=== PATIENT | male | born 1960 | race Caucasian/White ===

== ENCOUNTER 2016-11-07 13:49 | Emergency (ER) | payer MEDICARE ==
[2016-11-07 14:14] VITALS: BP 134/99; PULSE 79; RESP 16; TEMP 98.1; O2SAT 98
--- NOTE | 2016-11-07 15:13 | C.PDOC ---
History Of Present Illness 56 yr old male presents to the ER with complaints of bilateral eye itch, with runny nose, cough and injected conjunctiva for the past few days. Patient denies fever, chills, vision changes, discharge from eye, chest pain, SOB, weakness or numbness. Time Seen by Provider: 11/07/16 14:33 Chief Complaint (Nursing): Eye Problem History Per: Patient History/Exam Limitations: no limitations Onset/Duration Of Symptoms: Days Current Symptoms Are (Timing): Still Present Past Medical History Reviewed: Historical Data, Nursing Documentation, Vital Signs Vital Signs: Last Vital Signs Temp 98.1 F 11/07/16 14:10 Pulse 79 11/07/16 14:10 Resp 16 11/07/16 14:10 BP 134/99 H 11/07/16 14:10 Pulse Ox 98 11/07/16 15:13 Surgical History: Tonsillectomy Family History: States: No Known Family Hx - Social History Hx Alcohol Use: No Hx Substance Use: No - Immunization History Hx Tetanus Toxoid Vaccination: No Hx Influenza Vaccination: No Hx Pneumococcal Vaccination: No Review Of Systems Except As Marked, All Systems Reviewed And Found Negative. Constitutional: Negative for: Fever, Chills Eyes: Positive for: Conjunctivae Inflammation. Negative for: Vision Change ENT: Positive for: Nose Discharge Cardiovascular: Negative for: Chest Pain Respiratory: Positive for: Cough. Negative for: Shortness of Breath Neurological: Negative for: Weakness, Numbness Physical Exam - Physical Exam Appears: Well, Non-toxic, No Acute Distress Skin: Warm, Dry, No Rash Head: Atraumatic, Normacephalic Eye(s): bilateral: PERRL, EOMI, Other (Bilateral conjuctival injection. No discharge. ) Ear(s): Bilateral: Normal Oral Mucosa: Moist Throat: Normal, No Erythema, No Exudate Chest: Symmetrical, No Tenderness Cardiovascular: Rhythm Regular, No Murmur Respiratory: Normal Breath Sounds, No Rales, No Rhonchi, No Stridor, No Wheezing Extremity: Normal ROM, No Swelling Neurological/Psych: Oriented x3, Normal Speech ED Course And Treatment O2 Sat by Pulse Oximetry: 98 Medical Decision Making Medical Decision Making: PLAN: * Claritin PO Disposition Counseled Patient/Family Regarding: Diagnosis, Need For Followup, Rx Given - Disposition Referrals: [facility] at [facility] [Outside] Disposition: HOME/ ROUTINE Disposition Time: 15:11 Condition: STABLE Prescriptions: Loratadine/Pseudoephedrine [Claritin-D 24 Hour Tablet] 1 each PO DAILY #10 tab.er.24h Instructions: Allergies (ED) Forms: General Discharge Instructions, Work Excuse - POA Present On Arrival: None - Clinical Impression Clinical Impression: Allergic conjunctivitis - Scribe Statement The provider has reviewed the documentation as recorded by the Desiree Gomez Provider Attestation: All medical record entries made by the Desiree were at my direction and personally dictated by me. I have reviewed the chart and agree that the record accurately reflects my personal performance of the history, physical exam, medical decision making, and the department course for this patient. I have also personally directed, reviewed, and agree with the discharge instructions and disposition.
== END 2016-11-07 15:29 | disposition home or self-care (01) ==
LOC: C.ER 13:49
DX: H10.13 Acute atopic conjunctivitis, bilateral (principal)

== ENCOUNTER 2017-04-28 09:09 | Emergency (ER) | payer MEDICARE ==
[2017-04-28 09:52] VITALS: RESP 18; O2SAT 100
[2017-04-28 11:19] VITALS: BP 132/70; PULSE 84; TEMP 98.4
--- NOTE | 2017-04-28 12:59 | C.PDOC ---
History Of Present Illness The patient is a 56yo male, presents to the ED for evaluation of itching all over his body, which he attributes to bug bites. Patient states he woke up this morning and noticed bed bugs in his bed. He denies any shortness of breath, throat swelling. Patient offers no other medical complaints. Time Seen by Provider: 04/28/17 09:50 Chief Complaint (Nursing): Abnormal Skin Integrity History Per: Patient History/Exam Limitations: no limitations Onset/Duration Of Symptoms: Hrs Current Symptoms Are (Timing): Still Present Quality Of Symptoms: Itching Past Medical History Reviewed: Historical Data, Nursing Documentation, Vital Signs Vital Signs: Last Vital Signs Temp 98.4 F 04/28/17 11:17 Pulse 84 04/28/17 11:17 Resp 18 04/28/17 11:17 BP 132/70 04/28/17 11:17 Pulse Ox 100 04/28/17 13:04 - Medical History PMH: Anxiety Surgical History: Tonsillectomy Family History: States: Unknown Family Hx - Social History Hx Alcohol Use: No Hx Substance Use: No - Immunization History Hx Tetanus Toxoid Vaccination: No Hx Influenza Vaccination: No Hx Pneumococcal Vaccination: No Review Of Systems Respiratory: Negative for: Shortness of Breath Skin: Positive for: Rash (bilateral arms, abdomen) Physical Exam - Physical Exam Appears: Non-toxic, No Acute Distress Skin: Rash (diffuse papular rash noted to bilateral arms and on abdomen) Eye(s): bilateral: Normal Inspection Neck: Normal Cardiovascular: Rhythm Regular Respiratory: Normal Breath Sounds, No Wheezing Gastrointestinal/Abdominal: Soft, No Tenderness ED Course And Treatment O2 Sat by Pulse Oximetry: 100 (RA) Pulse Ox Interpretation: Normal Medical Decision Making Medical Decision Making: Impression: Insect Bite Plan: -- Patient informed to get rid of his mattress and bed sheets at home. Patient to be discharged home with prescription for Benadryl anti-itch cream. Disposition - Disposition Referrals: [facility] [Outside] [facility] [Outside] Disposition: HOME/ ROUTINE Disposition Time: 11:00 Condition: GOOD Additional Instructions: Thank you for letting us take care of you today. Your provider was Dr. Patricia. You were treated for bed bugs. The emergency medical care you received today was directed at your acute symptoms. If you were prescribed any medication, please fill it and take as directed. It may take several days for your symptoms to resolve. Return to the Emergency Department if your symptoms worsen, do not improve, or if you have any other problems. Please contact your doctor or call one of the physicians/clinics you have been referred to that are listed on the Patient Visit Information form that is included in your discharge packet. Bring any paperwork you were given at discharge with you along with any medications you are taking to your follow up visit. Our treatment cannot replace ongoing medical care by a primary care provider (PCP) outside of the emergency department. Thank you for allowing the [email or web address] team to be part of your care today. THROW OUT YOUR SHEETS AND MATTRESS. CONSIDER TREATING ROOM. Take the cream as needed for itch. Prescriptions: Diphenhydramine HCl/Zinc Acet [Benadryl Itch Stopping Crm] 28.3 gm TP BID #1 cream..g. Instructions: Bed Bugs (ED) Forms: [employer] (Honduran) - Clinical Impression Clinical Impression: Bed bug bite - Scribe Statement The provider has reviewed the documentation as recorded by the Francescoibpino Ryan All medical record entries made by the Francescoibe were at my direction and personally dictated by me. I have reviewed the chart and agree that the record accurately reflects my personal performance of the history, physical exam, medical decision making, and the department course for this patient. I have also personally directed, reviewed, and agree with the discharge instructions and disposition.
== END 2017-04-28 11:18 | disposition home or self-care (01) ==
LOC: C.ER 09:09
DX: S40.862A Insect bite (nonvenomous) of left upper arm, initial encounter (principal); S40.861A Insect bite (nonvenomous) of right upper arm, initial encounter; S30.861A Insect bite (nonvenomous) of abdominal wall, initial encounter; W57.XXXA Bitten or stung by nonvenomous insect and other nonvenomous arthropods, initial encounter

== ENCOUNTER 2018-08-27 09:18 | Emergency (ER) | payer MEDICARE, MEDICAID ==
[2018-08-27 09:18] VITALS: BMI 22.6
[2018-08-27 09:37] VITALS: O2SAT 99
[2018-08-27] MEDS ORDERED: Iohexol 240 (50 ml) PO STA (10:22)
[2018-08-27] MEDS ORDERED: Sodium Chloride 0.9% 1,000 ML IV STA (10:22)
--- NOTE | 2018-08-27 10:41 | C.PDOC ---
History Of Present Illness 58 year old male presents to ED with complaint of lower abdominal pain that started last night. Patient also complains of episodes of soft stool. Patient denies vomiting, nausea, experiencing similar symptoms, and any past medical history except for anxiety. Chief Complaint (Nursing): Abdominal Pain History Per: Patient History/Exam Limitations: no limitations Onset/Duration Of Symptoms: Days (1) Current Symptoms Are (Timing): Still Present Location Of Pain/Discomfort: Diffuse Quality Of Discomfort: "Pain" Associated Symptoms: Diarrhea Additional History Per: Patient Past Medical History Reviewed: Historical Data, Nursing Documentation, Vital Signs Vital Signs: Last Vital Signs Temp 98.4 F 08/27/18 09:35 Pulse 71 08/27/18 09:35 Resp 20 08/27/18 09:35 BP 151/88 H 08/27/18 09:35 Pulse Ox 99 08/27/18 09:35 - Medical History PMH: Anxiety Surgical History: Tonsillectomy Family History: States: Unknown Family Hx - Social History Hx Alcohol Use: No Hx Substance Use: No - Immunization History Hx Tetanus Toxoid Vaccination: No Hx Influenza Vaccination: No Hx Pneumococcal Vaccination: No Review Of Systems Constitutional: Negative for: Fever, Chills, Weakness Cardiovascular: Negative for: Chest Pain, Palpitations Respiratory: Negative for: Cough, Shortness of Breath Gastrointestinal: Positive for: Abdominal Pain (generalized lower abdominal pain), Diarrhea (states"stools are soft"). Negative for: Nausea, Vomiting Neurological: Negative for: Weakness, Numbness, Dizziness Physical Exam - Physical Exam Appears: Well, Non-toxic, No Acute Distress Skin: Normal Color, Warm, Dry Head: Atraumatic, Normacephalic Neck: Normal ROM, Supple Chest: Symmetrical, No Deformity Respiratory: No Accessory Muscle Use Gastrointestinal/Abdominal: Soft, Tenderness (left lower quadrant ), Guarding (mild), No Rebound Extremity: Capillary Refill (<2 seconds) Extremity: Bilateral: Atraumatic, Normal Color And Temperature Pulses: Left Radial: Normal, Right Radial: Normal Neurological/Psych: Oriented x3, Normal Speech, Normal Cognition ED Course And Treatment - Laboratory Results Result Diagrams: 08/27/18 10:54 08/27/18 10:54 O2 Sat by Pulse Oximetry: 99 (RA) - CT Scan/US Abdomen Pelvis CT CT/US Interpretation: Accession No. : [id number]. Patient Name / ID : EILEEN GONZALEZ / [id number]. Exam Date : 08/27/2018 13:27:16 ( Approved ). Study Comment : Sex / Age : M / 58Y. Creator : Cheryl Forde. Dictator : Anca Siu MD. Composite Boat Builder : Neuropsychology Director : Anca Siu MD. Approver2 : Report Date : 08/27/2018 13:39:39. My Comment : . PROCEDURE: CT Abdomen and Pelvis with oral and IV contrast. HISTORY: RLQ abd pain, diarrhea. COMPARISON: None available. TECHNIQUE: Contiguous axial images of the abdomen and pelvis. Oral and IV contrast was administered. Coronal and Sagittal reformats generated and reviewed. Contrast dose: 100 mL Visipaque 320 IV. Radiation dose: Total exam DLP = 519.32 mGy-cm. This CT exam was performed using one or more of the following dose reduction techniques: Automated exposure control, adjustment of the mA and/or kV according to patient size, and/or use of iterative reconstruction technique. FINDINGS: Examination limited by motion. LOWER THORAX: No visible consolidation, pleural effusion, or pneumothorax. Small hiatal hernia with evidence of gastroesophageal reflux. LIVER: At least 4 hepatic hypodensities (3 at the hepatic dome and 1 within the right hepatic lobe) which are too small to adequately characterize; statistically likely cysts or hemangiomas. GALLBLADDER AND BILE DUCTS: Unremarkable. PANCREAS: Unremarkable. SPLEEN: 13 mm probable splenule. Otherwise unremarkable. ADRENALS: Unremarkable. KIDNEYS AND URETERS: The kidneys enhance symmetrically. No hydronephrosis or obstructing renal calculus. BLADDER: The urinary bladder appears unremarkable. REPRODUCTIVE: Enlarged prostate gland. APPENDIX: The appendix appears within normal limits of caliber. No secondary signs of acute appendicitis. BOWEL: The stomach is nondistended. The bowel loops appear within normal limits of caliber without evidence of intestinal obstruction. Circumferential thickening of the rectosigmoid colon can be seen in setting of chronic diverticulosis. Clinical correlation is recommended to exclude colitis (I.e. infectious, inflammatory, ischemic). Rectal wall thickening. PERITONEUM: No significant free fluid. No definite free air. LYMPH NODES: No bulky lymphadenopathy identified. VASCULATURE: No aortic aneurysm. No atherosclerotic calcification or mural plaque present. BONES: Degenerative changes. OTHER FINDINGS: Small fat containing left inguinal hernia. IMPRESSION: Circumferential thickening of the rectosigmoid colon can be seen in setting of chronic diverticulosis. Clinical correlation is recommended to exclude colitis (I.e. infectious, inflammatory, ischemic). Rectal wall thickening may be seen in setting of proctitis. Correlat e clinically. At least 4 hepatic hypodensities (3 at the hepatic dome and 1 within the right hepatic lobe) which are too small to adequately characterize; statistically likely cysts or hemangiomas. Small hiatal hernia with evidence of gastroesophageal reflux. Progress Note: Labs ordered with lipase and UA for patient. Abdomen and Pelvis CT with PO contrast ordered for patient. IVF given to patient. CT with possible colitis. Cipro and Flagyl po started. On re-evaluation patient feels better, toilerates poa nd is stable to be d/c home with PMD follow up. Disposition - Disposition Disposition: HOME/ ROUTINE Disposition Time: 15:29 Condition: STABLE Additional Instructions: Follow up with PMD within 1-2 days. Return to ED if feel worse. Prescriptions: Ciprofloxacin [Cipro] 1 tab PO BID #20 tab metroNIDAZOLE [Flagyl] 500 mg PO Q8 #30 tab Instructions: Colitis Forms: [facility] (Upper Sorbian) - Clinical Impression Clinical Impression: Colitis - PA / FUR MIXER / Resident Statement MD/DO has reviewed & agrees with the documentation as recorded. (Jaqueline Mota) - Scribe Statement The provider has reviewed the documentation as recorded by the Scribe (Jaqueline Mota) All medical record entries made by the Scribe were at my direction and personally dictated by me. I have reviewed the chart and agree that the record accurately reflects my personal performance of the history, physical exam, medical decision making, and the department course for this patient. I have also personally directed, reviewed, and agree with the discharge instructions and disposition.
[2018-08-27] MEDS ORDERED: Iohexol 240 (50 ml) ONE (10:50)
[2018-08-27] MEDS ORDERED: Sodium Chloride 0.9% 1,000 ML ONE (10:50)
[2018-08-27 11:05] LABS: BASO % 0.3 % (0.0-2.0); EOS # 0.2 K/uL (0.0-0.7); EOS % 3.1 % (0.0-4.0); HEMOGLOBIN 16.7 g/dL (12.0-18.0); LYMPH # 2.4 K/uL (1.0-4.3); MEAN CELL VOLUME 84.4 fL (80.0-94.0); MEAN CORPUSCULAR HEMOGLOBIN 29.1 pg (27.0-31.0); MEAN CORPUSCULAR HGB CONC 34.5 g/dL (33.0-37.0); MEAN PLATELET VOLUME 8.1 fL (7.2-11.7); MONO # 0.5 K/uL (0.0-0.8); MONO % 8.1 % (0.0-10.0); NEUT # 3.5 K/uL (1.8-7.0); NEUT % 52.5 % (50.0-75.0); NRBC % 0.1 % (0.0-2.0); RBC 5.73 Mil/uL (4.40-5.90); RED CELL DISTRIBUTION WIDTH 13.2 % (11.5-14.5); WHITE BLOOD COUNT 6.6 K/uL (4.8-10.8)
[2018-08-27 11:18] LABS: BLOOD UREA NITROGEN 12 mg/dL (9-20); CALCIUM 8.9 mg/dl (8.6-10.4); GFR NON-AFRICAN AMERICAN > 60; LIPASE 73 U/L (23-300)
[2018-08-27 11:22] LABS: ALB/GLOB RATIO 1.5 (1.0-2.1); ALBUMIN 4.9 g/dL (3.5-5.0); ALT/SGPT < 6 U/L (21-72); AST/SGOT 50 U/L (17-59)
[2018-08-27 12:43] LABS: SQUAMOUS EPITHIAL < 1 /hpf (0-5); URINE BILIRUBIN NEGATIVE (NEGATIVE); URINE BLOOD NEGATIVE (NEGATIVE); URINE CLARITY Clear (Clear); URINE COLOR Yellow (YELLOW); URINE GLUCOSE (UA) NORMAL (Normal); URINE LEUKOCYTE ESTERASE NEG Leu/uL (Negative); URINE PROTEIN NEGATIVE (NEGATIVE)
[2018-08-27] MEDS ORDERED: Iodixanol 320 MG/ML 100 ML BOTTLE IV ONE (13:12)
--- NOTE | 2018-08-27 14:25 | CT ---
PROCEDURE: CT Abdomen and Pelvis with oral and IV contrast. HISTORY: RLQ abd pain, diarrhea COMPARISON: None available TECHNIQUE: Contiguous axial images of the abdomen and pelvis. Oral and IV contrast was administered. Coronal and Sagittal reformats generated and reviewed. Contrast dose: 100 mL Visipaque 320 IV Radiation dose: Total exam DLP = 519.32 mGy-cm. This CT exam was performed using one or more of the following dose reduction techniques: Automated exposure control, adjustment of the mA and/or kV according to patient size, and/or use of iterative reconstruction technique. FINDINGS: Examination limited by motion. LOWER THORAX: No visible consolidation, pleural effusion, or pneumothorax. Small hiatal hernia with evidence of gastroesophageal reflux. LIVER: At least 4 hepatic hypodensities (3 at the hepatic dome and 1 within the right hepatic lobe) which are too small to adequately characterize; statistically likely cysts or hemangiomas. GALLBLADDER AND BILE DUCTS: Unremarkable. PANCREAS: Unremarkable. SPLEEN: 13 mm probable splenule. Otherwise unremarkable. ADRENALS: Unremarkable. KIDNEYS AND URETERS: The kidneys enhance symmetrically. No hydronephrosis or obstructing renal calculus. BLADDER: The urinary bladder appears unremarkable. REPRODUCTIVE: Enlarged prostate gland. APPENDIX: The appendix appears within normal limits of caliber. No secondary signs of acute appendicitis. BOWEL: The stomach is nondistended. The bowel loops appear within normal limits of caliber without evidence of intestinal obstruction. Circumferential thickening of the rectosigmoid colon can be seen in setting of chronic diverticulosis. Clinical correlation is recommended to exclude colitis (I.e. infectious, inflammatory, ischemic). Rectal wall thickening. PERITONEUM: No significant free fluid. No definite free air. LYMPH NODES: No bulky lymphadenopathy identified. VASCULATURE: No aortic aneurysm. No atherosclerotic calcification or mural plaque present. BONES: Degenerative changes. OTHER FINDINGS: Small fat containing left inguinal hernia. IMPRESSION: Circumferential thickening of the rectosigmoid colon can be seen in setting of chronic diverticulosis. Clinical correlation is recommended to exclude colitis (I.e. infectious, inflammatory, ischemic). Rectal wall thickening may be seen in setting of proctitis. Correlate clinically. At least 4 hepatic hypodensities (3 at the hepatic dome and 1 within the right hepatic lobe) which are too small to adequately characterize; statistically likely cysts or hemangiomas. Small hiatal hernia with evidence of gastroesophageal reflux.
[2018-08-27 15:01] VITALS: BP 145/89; PULSE 60; RESP 15; TEMP 98.2
== END 2018-08-27 15:45 | disposition home or self-care (01) ==
LOC: C.ER 09:18
DX: K52.9 Noninfective gastroenteritis and colitis, unspecified (principal)
CPT/HCPCS: 74177; 80053; 81001; 83690; 85025; 96360; 99285; J7030; Q9966; Q9967